=== PATIENT | male | born 1970 | race African-American/Black ===

== ENCOUNTER 2018-04-05 21:33 | Emergency (ER) | payer OTHER | END 2018-04-06 00:03 | disposition home or self-care (01) | LOC: ER 04-06 00:03 | DX: S16.1XXA Strain of muscle, fascia and tendon at neck level, initial encounter (principal); M54.5 Low back pain; I10 Essential (primary) hypertension; E11.9 Type 2 diabetes mellitus without complications; Z86.73 Personal history of transient ischemic attack (TIA), and cerebral infarction without residual deficits; V49.49XA Driver injured in collision with other motor vehicles in traffic accident, initial encounter; Y93.89 Activity, other specified; Y99.8 Other external cause status; Y92.488 Other paved roadways as the place of occurrence of the external cause | CPT/HCPCS: 72040; 72100; 99284 ==

== ENCOUNTER 2019-09-17 07:47 | Inpatient (IN) | payer OTHER ==
[~2019-09-17] VITALS: Ht 182.9 cm; Wt 86.4 kg
[~2019-09-17 07:47] MED LIST: CYCL10TA2 PO; NAPR-514 PO
[2019-09-17] MEDS ORDERED: fentaNYL PF VIAL 100 MCG/2 ML VIAL IVP ONE (08:15)
[2019-09-17] MEDS ORDERED: hydrALAZINE 20 MG/ML VIAL. IVP ONE (08:15)
[2019-09-17] MEDS ORDERED: IV NORMAL SALINE 1000ML BAG 1,000 ML IV ONE (08:15)
[2019-09-17 08:38] LABS: BILIRUBIN,URINE NEGATIVE (NEG); CLARITY,URINE CLEAR; COLOR,URINE YELLOW; NITRITE,URINE NEGATIVE (NEG); PROTEIN,URINE 100 mg/dL (NEG-TRACE)
[2019-09-17 08:44] LABS: BACTERIA,URINE 0 /HPF (0-FEW); SQUAMOUS EPITHELIAL CELL,UR FEW /LPF; WBC,URINE 0 /HPF (0-4)
--- NOTE | 2019-09-17 08:46 | PHYS DOC ---
Past Medical History Past Medical History: CVA, Diabetes-Type II, Hypertension, Seizure Past Surgical History: No Surgical History Alcohol Use: None Drug Use: None Adult General Chief Complaint Chief Complaint: HEADACHE HPI HPI Patient is a 49 year old male with past medical history of CVA, diabetes mellitus, and hypertension who presents with leg cramping and headaches that began last night. He he denies any syncopal episodes and says that he was sleeping when the cramping began. At this time he is complaining of a diffuse headache which is more intense than his normal headaches. He is also complaining of immobility due to the cramping in his legs which is most intense in the left calf. He denies any chest pain, shortness of breath, cough, congestion, or fever. Review of Systems Review of Systems Constitutional: Denies fever or chills Eyes: Denies redness or eye pain HENT: Denies nasal congestion or sore throat Respiratory: Denies cough or shortness of breath Cardiovascular: Denies chest pain or palpitations GI: Denies abdominal pain, nausea, or vomiting : Denies dysuria or hematuria Musculoskeletal: Reports bilateral leg pain and cramping. Integument: Denies rash or skin lesions Neurologic: Reports headache, denies focal weakness or sensory changes Complete systems were reviewed and found to be within normal limits, except as documented in this note. Current Medications Current Medications Current Medications Medications (Trade) Dose Ordered Sig/Faviola Start Time Stop Time Status Last Admin Dose Admin Fentanyl Citrate (Fentanyl 2ml Vial) 50 mcg 1X ONCE 09/17/19 08:15 09/17/19 08:16 DC 09/17/19 08:54 50 MCG Hydralazine HCl (Apresoline Inj) 20 mg 1X ONCE 09/17/19 08:15 09/17/19 08:16 DC 09/17/19 08:51 20 MG Labetalol HCl (Normodyne Iv Push) 20 mg 1X ONCE 09/17/19 09:45 09/17/19 09:46 DC 09/17/19 10:04 20 MG Sodium Chloride 1,000 ml @ 1,000 mls/hr 1X ONCE 09/17/19 08:15 09/17/19 09:14 DC 09/17/19 08:51 1,000 MLS/HR Allergies Allergies Allergies Coded Allergies Type Severity Reaction Last Updated Verified No Known Drug Allergies 10/24/13 No Physical Exam Physical Exam Constitutional: Tired, confused 49 yo male. HENT: Normocephalic, atraumatic, oropharynx moist Eyes: conjunctiva normal, no discharge Cardiovascular: Heart rate normal, regular rhythm Lungs & Thorax: Bilateral breath sounds clear to auscultation, no wheezing Abdomen: Soft, no tenderness Skin: Warm, dry, no erythema, no rash Back: No tenderness, no CVA tenderness Extremities: No tenderness, ROM intact, no edema Neurologic: Alert and oriented X 3, normal motor function, normal sensory function, no focal deficits noted Psychologic: Affect normal, judgement normal, mood normal Current Patient Data Vital Signs Vital Signs Date Time Temp Pulse Resp B/P (MAP) Pulse Ox O2 Delivery O2 Flow Rate FiO2 09/17/19 13:02 66 96 09/17/19 12:45 16 09/17/19 10:04 201/102 09/17/19 09:34 Room Air 09/17/19 07:47 98.1 98.1 Lab Values Laboratory Tests Test 09/17/19 08:22 09/17/19 08:50 Urine Collection Type Unknown Urine Color Yellow Urine Clarity Clear Urine pH 5.0 Urine Specific [place] 1.020 Urine Protein 100 mg/dL (NEG-TRACE) Urine Glucose (UA) Negative mg/dL (NEG) Urine Ketones (Stick) Negative mg/dL (NEG) Urine Blood Moderate (NEG) Urine Nitrite Negative (NEG) Urine Bilirubin Negative (NEG) Urine Urobilinogen Dipstick 1.0 mg/dL (0.2 mg/dL) Urine Leukocyte Esterase Negative (NEG) Urine RBC 6-10 /HPF (0-2) Urine WBC 0 /HPF (0-4) Urine Squamous Epithelial Cells Few /LPF Urine Bacteria 0 /HPF (0-FEW) Urine Opiates Screen Neg (NEG) Urine Methadone Screen Neg (NEG) Urine Barbiturates Neg (NEG) Urine Phencyclidine Screen Neg (NEG) Urine Amphetamine/Methamphetamine Neg (NEG) Urine Benzodiazepines Screen Neg (NEG) Urine Cocaine Screen Neg (NEG) Urine Cannabinoids Screen Pos (NEG) Urine Ethyl Alcohol Neg (NEG) White Blood Count 7.8 x10^3/uL (4.0-11.0) Red Blood Count 5.24 x10^6/uL (4.30-5.70) Hemoglobin 15.2 g/dL (13.0-17.5) Hematocrit 45.6 % (39.0-53.0) Mean Corpuscular Volume 87 fL (79-100) Mean Corpuscular Hemoglobin 29 pg (25-35) Mean Corpuscular Hemoglobin Concent 33 g/dL (31-37) Red Cell Distribution Width 14.2 % (11.5-14.5) Platelet Count 189 x10^3/uL (140-400) Neutrophils (%) (Auto) 78 % (31-73) H Lymphocytes (%) (Auto) 15 % (24-48) L Monocytes (%) (Auto) 5 % (0-9) Eosinophils (%) (Auto) 1 % (0-3) Basophils (%) (Auto) 1 % (0-3) Neutrophils # (Auto) 6.1 x10^3/uL (1.8-7.7) Lymphocytes # (Auto) 1.2 x10^3/uL (1.0-4.8) Monocytes # (Auto) 0.4 x10^3/uL (0.0-1.1) Eosinophils # (Auto) 0.1 x10^3/uL (0.0-0.7) Basophils # (Auto) 0.1 x10^3/uL (0.0-0.2) Prothrombin Time 12.6 SEC (11.7-14.0) Prothrombin Time INR 1.0 (0.8-1.1) Activated Partial Thromboplast Time 23 SEC (24-38) L Sodium Level 142 mmol/L (136-145) Potassium Level 3.8 mmol/L (3.5-5.1) Chloride Level 103 mmol/L (98-107) Carbon Dioxide Level 30 mmol/L (21-32) Anion Gap 9 (6-14) Blood Urea Nitrogen 15 mg/dL (8-26) Creatinine 1.6 mg/dL (0.7-1.3) H Estimated GFR (Cockcroft-Gault) 55.9 BUN/Creatinine Ratio 9 (6-20) Glucose Level 134 mg/dL (70-99) H Lactic Acid Level 1.3 mmol/L (0.4-2.0) Calcium Level 8.7 mg/dL (8.5-10.1) Magnesium Level 2.2 mg/dL (1.8-2.4) Total Bilirubin 0.5 mg/dL (0.2-1.0) Aspartate Amino Transferase (AST) 19 U/L (15-37) Alanine Aminotransferase (ALT) 17 U/L (16-63) Alkaline Phosphatase 79 U/L (46-116) Ammonia 14 mcmol/L (11-34) Creatine Kinase 364 U/L (39-308) H Creatine Kinase MB (Mass) 2.2 ng/mL (0.0-3.6) Creatine Kinase MB Relative Index 0.6 % (0-4) Troponin I Quantitative < 0.017 ng/mL (0.000-0.055) Total Protein 7.8 g/dL (6.4-8.2) Albumin 3.8 g/dL (3.4-5.0) Albumin/Globulin Ratio 1.0 (1.0-1.7) Ethyl Alcohol Level < 10 mg/dL (0-10) Laboratory Tests 09/17/19 08:50 Laboratory Tests 09/17/19 08:50 EKG EKG 09/17/2019 @08:20 showed NSR at 59bpm. ST depressions in Leads II, III, and aVF, as well as ST elevations in V1, V2 are consistent with old EKG. No other acute abnormalities noted. [] Radiology/Procedures Radiology/Procedures PROCEDURE: CT HEAD WO CONTRAST CT HEAD WO CONTRAST Indication: Headache, hypertension, no trauma Exposure: One or more of the following individualized dose reduction techniques were utilized for this examination: 1. Automated exposure control 2. Adjustment of the mA and/or kV according to patient size 3. Use of iterative reconstruction technique. Technique: Standard imaging without intravenous contrast. Comparison with images from 01/29/2015, and report from that study not available. FINDINGS: No evidence of acute intracranial hemorrhage, mass effect, midline shift or abnormal extra-axial fluid collection. Area of low-attenuation in the left occipital lobe compatible with area of chronic encephalomalacia is identified, similar to prior study. Ex vacuo dilatation of the adjacent ventricle is again identified. The visualized orbits appear unremarkable. No notable scalp swelling. Partially seen paranasal sinuses are clear. The visualized mastoids and auditory canals appear grossly clear. No acute skull abnormality. IMPRESSION: Chronic changes in the left occipital lobe. No evidence of acute intracranial hemorrhage. Could obtain MRI for further evaluation, as indicated. Electronically signed by: Dieter Benítez MD (09/17/2019 8:52 AM) [facility] Course & Med Decision Making Course & Med Decision Making Patient is a 49 yo male with PMH of CVA, DM, and HTN presents with a chief complaint of leg cramping headache that began last night. The patient denies any trauma or syncopal episodes. On exam he was confused and sleepy. He denied any chest pain or shortness of breath. BP was 230/100 in the ambulance and remained elevated in the ED. Hydralazine 20mg IV was given, which failed to lower his BP. Head CT was obtained and only showed old, chronic changes. Labs were unremarkable. Patient felt better after administration of blood pressure medications and elected to be discharged home. In the process of walking out of the ED the patient became diaphoretic and vomited. Patient was brought back to the ED and placed in a bed. Due to concern for a large swing in the patient's blood pressure, the patient requires admission for further evaluation and treatment. Discussed with Dr. Almeida who is in agreement with admission. Discussed findings and plan with patient and family, who acknowledge understanding and agreement. Dragon Disclaimer Dragon Disclaimer This electronic medical record was generated, in whole or in part, using a voice recognition dictation system. Departure Departure Impression: Primary Impression: Hypertensive urgency Additional Impression: Headache Disposition: 09 ADMITTED INPATIENT Admitting Physician: Asiya Almeida Condition: STABLE Referrals: ASIYA ALMEIDA MD (PCP) Problem Qualifiers Additional Impression: Headache Headache type: unspecified Headache chronicity pattern: acute headache Intractability: not intractable Qualified Codes: R51 - Headache DIETER POSADA DO Sep 17, 2019 08:45
--- NOTE | 2019-09-17 08:55 | RAD ---
CT HEAD WO CONTRAST Indication: Headache, hypertension, no trauma Exposure: One or more of the following individualized dose reduction techniques were utilized for this examination: 1. Automated exposure control 2. Adjustment of the mA and/or kV according to patient size 3. Use of iterative reconstruction technique. Technique: Standard imaging without intravenous contrast. Comparison with images from 01/29/2015, and report from that study not available. FINDINGS: No evidence of acute intracranial hemorrhage, mass effect, midline shift or abnormal extra-axial fluid collection. Area of low-attenuation in the left occipital lobe compatible with area of chronic encephalomalacia is identified, similar to prior study. Ex vacuo dilatation of the adjacent ventricle is again identified. The visualized orbits appear unremarkable. No notable scalp swelling. Partially seen paranasal sinuses are clear. The visualized mastoids and auditory canals appear grossly clear. No acute skull abnormality. IMPRESSION: Chronic changes in the left occipital lobe. No evidence of acute intracranial hemorrhage. Could obtain MRI for further evaluation, as indicated. Electronically signed by: Dieter Benítez MD (09/17/2019 8:52 AM) [facility]
[2019-09-17 09:08] LABS: BARBITURATES NEG (NEG); BENZODIAZEPINES NEG (NEG); CANNABINOIDS POS (NEG); COCAINE NEG (NEG); METHADONE NEG (NEG); OPIATES NEG (NEG); PHENCYCLIDINE NEG (NEG)
[2019-09-17 09:09] LABS: AMPHETAMINE/METHAMPHETAMINE NEG (NEG)
[2019-09-17 09:15] LABS: BASO # 0.1 x10^3/uL (0.0-0.2); BASO % 1 % (0-3); EOS # 0.1 x10^3/uL (0.0-0.7); EOS % 1 % (0-3); HEMATOCRIT 45.6 % (39.0-53.0); HEMOGLOBIN 15.2 g/dL (13.0-17.5); LYMPH # 1.2 x10^3/uL (1.0-4.8); LYMPH % 15 % (24-48); MEAN CORPUSCULAR HEMOGLOBIN 29 pg (25-35); MEAN CORPUSCULAR HGB CONC 33 g/dL (31-37); MEAN CORPUSCULAR VOLUME 87 fL (79-100); MONO # 0.4 x10^3/uL (0.0-1.1); MONO % 5 % (0-9); NEUT # 6.1 x10^3/uL (1.8-7.7); NEUT % 78 % (31-73); PLATELET COUNT 189 x10^3/uL (140-400); RED BLOOD COUNT 5.24 x10^6/uL (4.30-5.70); RED CELL DISTRIBUTION WIDTH 14.2 % (11.5-14.5); WHITE BLOOD COUNT 7.8 x10^3/uL (4.0-11.0)
[2019-09-17 09:22] LABS: CALCIUM 8.7 mg/dL (8.5-10.1); CREATININE 1.6 mg/dL (0.7-1.3); GFR 55.9; POTASSIUM 3.8 mmol/L (3.5-5.1)
[2019-09-17 09:27] LABS: ALBUMIN 3.8 g/dL (3.4-5.0); MAGNESIUM 2.2 mg/dL (1.8-2.4); TOTAL BILIRUBIN 0.5 mg/dL (0.2-1.0); TOTAL PROTEIN 7.8 g/dL (6.4-8.2)
[2019-09-17 09:30] LABS: PROTHROMBIN TIME PATIENT 12.6 SEC (11.7-14.0)
[2019-09-17] MEDS ORDERED: LABETALOL 20 MG/4 ML DISP.SYRIN. IVP ONE (09:45)
[2019-09-17] MEDS ORDERED: BUTA1TAB23 PO (11:36)
[2019-09-17] MEDS ORDERED: CLON0.1T PO (11:36)
--- NOTE | 2019-09-17 12:45 | PDOC1 ---
History and Physical Date of Admission Date of Admission DATE: 09/17/19 TIME: 12:45 Past Medical History Past Medical History Past Medical History Past Medical History Past Medical History: CVA, Diabetes-Type II, Hypertension, Seizure Past Surgical History: No Surgical History Alcohol Use: None Drug Use: None Current Problem List Problem List Problems Medical Problems: (1) Headache Status: Acute (2) Hypertensive urgency Status: Acute Current Medications Current Medications Current Medications Sodium Chloride 1,000 ml @ 1,000 mls/hr 1X ONCE IV Last administered on 09/17/19at 08:51; Start 09/17/19 at 08:15; Stop 09/17/19 at 09:14; Status DC Hydralazine HCl (Apresoline Inj) 20 mg 1X ONCE IVP Last administered on 09/17/19at 08:51; Start 09/17/19 at 08:15; Stop 09/17/19 at 08:16; Status DC Fentanyl Citrate (Fentanyl 2ml Vial) 50 mcg 1X ONCE IVP Last administered on 09/17/19at 08:54; Start 09/17/19 at 08:15; Stop 09/17/19 at 08:16; Status DC Labetalol HCl (Normodyne Iv Push) 20 mg 1X ONCE IVP Last administered on 09/17/19at 10:04; Start 09/17/19 at 09:45; Stop 09/17/19 at 09:46; Status DC Active Scripts Active Clonidine Hcl 0.1 Mg Tablet 0.1 Mg PO TID PRN PRN Take for systolic (upper) blood pressure greater than 180 and/or diastolic (lower) blood pressure greater than 100. [id number] 50-325-40 (Butalb/Acetaminophen/Caffeine) 1 Each Tablet 1 Each PO Q6HRS PRN Cyclobenzaprine Hcl 10 Mg Tablet 1 Tab PO TID Naproxen 500 Mg Tablet 1 Tab PO BID Allergies Allergies: Coded Allergies: No Known Drug Allergies (Unverified , 10/24/13) Vitals Vitals Vital Signs Date Time Temp Pulse Resp B/P (MAP) Pulse Ox O2 Delivery O2 Flow Rate FiO2 09/17/19 11:30 82 18 98 09/17/19 10:04 201/102 09/17/19 09:34 Room Air 09/17/19 07:47 98.1 98.1 Labs Labs Laboratory Tests Test 09/17/19 08:22 09/17/19 08:50 Urine Collection Type Unknown Urine Color Yellow Urine Clarity Clear Urine pH 5.0 Urine Specific [place] 1.020 Urine Protein 100 mg/dL (NEG-TRACE) Urine Glucose (UA) Negative mg/dL (NEG) Urine Ketones (Stick) Negative mg/dL (NEG) Urine Blood Moderate (NEG) Urine Nitrite Negative (NEG) Urine Bilirubin Negative (NEG) Urine Urobilinogen Dipstick 1.0 mg/dL (0.2 mg/dL) Urine Leukocyte Esterase Negative (NEG) Urine RBC 6-10 /HPF (0-2) Urine WBC 0 /HPF (0-4) Urine Squamous Epithelial Cells Few /LPF Urine Bacteria 0 /HPF (0-FEW) Urine Opiates Screen Neg (NEG) Urine Methadone Screen Neg (NEG) Urine Barbiturates Neg (NEG) Urine Phencyclidine Screen Neg (NEG) Urine Amphetamine/Methamphetamine Neg (NEG) Urine Benzodiazepines Screen Neg (NEG) Urine Cocaine Screen Neg (NEG) Urine Cannabinoids Screen Pos (NEG) Urine Ethyl Alcohol Neg (NEG) White Blood Count 7.8 x10^3/uL (4.0-11.0) Red Blood Count 5.24 x10^6/uL (4.30-5.70) Hemoglobin 15.2 g/dL (13.0-17.5) Hematocrit 45.6 % (39.0-53.0) Mean Corpuscular Volume 87 fL (79-100) Mean Corpuscular Hemoglobin 29 pg (25-35) Mean Corpuscular Hemoglobin Concent 33 g/dL (31-37) Red Cell Distribution Width 14.2 % (11.5-14.5) Platelet Count 189 x10^3/uL (140-400) Neutrophils (%) (Auto) 78 % (31-73) Lymphocytes (%) (Auto) 15 % (24-48) Monocytes (%) (Auto) 5 % (0-9) Eosinophils (%) (Auto) 1 % (0-3) Basophils (%) (Auto) 1 % (0-3) Neutrophils # (Auto) 6.1 x10^3/uL (1.8-7.7) Lymphocytes # (Auto) 1.2 x10^3/uL (1.0-4.8) Monocytes # (Auto) 0.4 x10^3/uL (0.0-1.1) Eosinophils # (Auto) 0.1 x10^3/uL (0.0-0.7) Basophils # (Auto) 0.1 x10^3/uL (0.0-0.2) Prothrombin Time 12.6 SEC (11.7-14.0) Prothromb Time International Ratio 1.0 (0.8-1.1) Activated Partial Thromboplast Time 23 SEC (24-38) Sodium Level 142 mmol/L (136-145) Potassium Level 3.8 mmol/L (3.5-5.1) Chloride Level 103 mmol/L (98-107) Carbon Dioxide Level 30 mmol/L (21-32) Anion Gap 9 (6-14) Blood Urea Nitrogen 15 mg/dL (8-26) Creatinine 1.6 mg/dL (0.7-1.3) Estimated GFR (Cockcroft-Gault) 55.9 BUN/Creatinine Ratio 9 (6-20) Glucose Level 134 mg/dL (70-99) Lactic Acid Level 1.3 mmol/L (0.4-2.0) Calcium Level 8.7 mg/dL (8.5-10.1) Magnesium Level 2.2 mg/dL (1.8-2.4) Total Bilirubin 0.5 mg/dL (0.2-1.0) Aspartate Amino Transf (AST/SGOT) 19 U/L (15-37) Alanine Aminotransferase (ALT/SGPT) 17 U/L (16-63) Alkaline Phosphatase 79 U/L (46-116) Ammonia 14 mcmol/L (11-34) Creatine Kinase 364 U/L (39-308) Creatine Kinase MB (Mass) 2.2 ng/mL (0.0-3.6) Creatine Kinase MB Relative Index 0.6 % (0-4) Troponin I Quantitative < 0.017 ng/mL (0.000-0.055) Total Protein 7.8 g/dL (6.4-8.2) Albumin 3.8 g/dL (3.4-5.0) Albumin/Globulin Ratio 1.0 (1.0-1.7) Ethyl Alcohol Level < 10 mg/dL (0-10) Laboratory Tests Test 09/17/19 08:09/17/19 08:50 Urine Collection Type Unknown Urine Color Yellow Urine Clarity Clear Urine pH 5.0 Urine Specific [place] 1.020 Urine Protein 100 mg/dL (NEG-TRACE) Urine Glucose (UA) Negative mg/dL (NEG) Urine Ketones (Stick) Negative mg/dL (NEG) Urine Blood Moderate (NEG) Urine Nitrite Negative (NEG) Urine Bilirubin Negative (NEG) Urine Urobilinogen Dipstick 1.0 mg/dL (0.2 mg/dL) Urine Leukocyte Esterase Negative (NEG) Urine RBC 6-10 /HPF (0-2) Urine WBC 0 /HPF (0-4) Urine Squamous Epithelial Cells Few /LPF Urine Bacteria 0 /HPF (0-FEW) Urine Opiates Screen Neg (NEG) Urine Methadone Screen Neg (NEG) Urine Barbiturates Neg (NEG) Urine Phencyclidine Screen Neg (NEG) Urine Amphetamine/Methamphetamine Neg (NEG) Urine Benzodiazepines Screen Neg (NEG) Urine Cocaine Screen Neg (NEG) Urine Cannabinoids Screen Pos (NEG) Urine Ethyl Alcohol Neg (NEG) White Blood Count 7.8 x10^3/uL (4.0-11.0) Red Blood Count 5.24 x10^6/uL (4.30-5.70) Hemoglobin 15.2 g/dL (13.0-17.5) Hematocrit 45.6 % (39.0-53.0) Mean Corpuscular Volume 87 fL (79-100) Mean Corpuscular Hemoglobin 29 pg (25-35) Mean Corpuscular Hemoglobin Concent 33 g/dL (31-37) Red Cell Distribution Width 14.2 % (11.5-14.5) Platelet Count 189 x10^3/uL (140-400) Neutrophils (%) (Auto) 78 % (31-73) Lymphocytes (%) (Auto) 15 % (24-48) Monocytes (%) (Auto) 5 % (0-9) Eosinophils (%) (Auto) 1 % (0-3) Basophils (%) (Auto) 1 % (0-3) Neutrophils # (Auto) 6.1 x10^3/uL (1.8-7.7) Lymphocytes # (Auto) 1.2 x10^3/uL (1.0-4.8) Monocytes # (Auto) 0.4 x10^3/uL (0.0-1.1) Eosinophils # (Auto) 0.1 x10^3/uL (0.0-0.7) Basophils # (Auto) 0.1 x10^3/uL (0.0-0.2) Prothrombin Time 12.6 SEC (11.7-14.0) Prothromb Time International Ratio 1.0 (0.8-1.1) Activated Partial Thromboplast Time 23 SEC (24-38) Sodium Level 142 mmol/L (136-145) Potassium Level 3.8 mmol/L (3.5-5.1) Chloride Level 103 mmol/L (98-107) Carbon Dioxide Level 30 mmol/L (21-32) Anion Gap 9 (6-14) Blood Urea Nitrogen 15 mg/dL (8-26) Creatinine 1.6 mg/dL (0.7-1.3) Estimated GFR (Cockcroft-Gault) 55.9 BUN/Creatinine Ratio 9 (6-20) Glucose Level 134 mg/dL (70-99) Lactic Acid Level 1.3 mmol/L (0.4-2.0) Calcium Level 8.7 mg/dL (8.5-10.1) Magnesium Level 2.2 mg/dL (1.8-2.4) Total Bilirubin 0.5 mg/dL (0.2-1.0) Aspartate Amino Transf (AST/SGOT) 19 U/L (15-37) Alanine Aminotransferase (ALT/SGPT) 17 U/L (16-63) Alkaline Phosphatase 79 U/L (46-116) Ammonia 14 mcmol/L (11-34) Creatine Kinase 364 U/L (39-308) Creatine Kinase MB (Mass) 2.2 ng/mL (0.0-3.6) Creatine Kinase MB Relative Index 0.6 % (0-4) Troponin I Quantitative < 0.017 ng/mL (0.000-0.055) Total Protein 7.8 g/dL (6.4-8.2) Albumin 3.8 g/dL (3.4-5.0) Albumin/Globulin Ratio 1.0 (1.0-1.7) Ethyl Alcohol Level < 10 mg/dL (0-10) VTE Prophylaxis Ordered VTE Prophylaxis Devices: Yes VTE Pharmacological Prophylaxi: Yes (NOT MY PT) MASOOD KAPLAN MD Sep 17, 2019 12:45
[2019-09-17] MEDS ORDERED: ONDANSETRON PF 4 MG/2 ML VIAL. IVP ONE (13:15)
[2019-09-17] MEDS ORDERED: DEXTROSE 50% 25 GM / 50ML DISP.SYRIN. IV PRN (13:45)
[2019-09-17] MEDS ORDERED: IV DEXTROSE 5% 250 ML BAG. IV PRN (13:45)
[2019-09-17 14:15] VITALS: BP 165/81
[2019-09-17] MEDS ORDERED: CITA20TA6 PO (14:53)
[2019-09-17] MEDS ORDERED: SIMV20TA18 PO (14:53)
[2019-09-17] MEDS ORDERED: LEVE-14 PO (14:53)
[2019-09-17] MEDS ORDERED: LOSA-73 PO (14:53)
[2019-09-17] MEDS ORDERED: ASPI325T8 PO (14:53)
[2019-09-17] MEDS ORDERED: LINA5TAB PO (14:53)
[2019-09-17] MEDS ORDERED: AMLO10TA8 PO (14:53)
[2019-09-17] MEDS: ASPIRIN 325 MG TABLET PO SCH (15:59)
[2019-09-17] MEDS: LINAGLIPTIN 5 MG TABLET PO SCH (15:59)
[2019-09-17] MEDS: LOSARTAN POTASSIUM 25 MG TABLET. PO SCH (16:00)
[2019-09-17] MEDS: CITALOPRAM 20 MG TABLET. PO SCH (16:00)
[2019-09-17] MEDS: amLODIPine BESYLATE 10 MG TABLET PO SCH (16:00)
[2019-09-17] MEDS: INSULIN LISPRO 300 UNITS/3 ML VIAL. SQ SCH (17:00)
[2019-09-17 19:28] VITALS: BP 143/73
[2019-09-17] MEDS: levETIRAcetam 500 MG TABLET PO SCH (20:22)
[2019-09-17] MEDS: SIMVASTATIN 20 MG TABLET PO SCH (20:22)
[2019-09-17 23:16] VITALS: BP 140/71
[2019-09-18 03:09] VITALS: BP 146/70
--- NOTE | 2019-09-18 06:07 | EKG ---
[address] [place] [address] Test Date: 2019-09-17 Test Time: 08:20:44 Pat Name: ENEDELIA MATTA Department: Room: Gender: M [employer]: : 1970 Requested By: FÉLIX POSADA Order Number: [id number] Reading MD: Measurements Intervals [place] Rate: 59 P: 48 LA: 152 QRS: -17 QRSD: 98 T: -41 QT: 422 QTc: 422 Interpretive Statements SINUS RHYTHM LEFTWARD AXIS CONSIDER LEFT VENTRICULAR HYPERTROPHY QRS(T) CONTOUR ABNORMALITY CONSIDER ANTEROSEPTAL MYOCARDIAL DAMAGE ST & T ABNORMALITY, CONSIDER INFERIOR ISCHEMIA OR LEFT VENTRICULAR STRAIN T ABNORMALITY IN ANTEROLATERAL LEADS ABNORMAL ECG No previous ECG available for comparison
[2019-09-18 07:00] VITALS: BP 155/82
[2019-09-18] MEDS: INSULIN LISPRO 300 UNITS/3 ML VIAL. SQ SCH ×3 (08:00→17:00)
--- NOTE | 2019-09-18 08:50 | PDOC ---
Provider Note Provider Note [id number] ASIYA ROSADO MD Sep 18, 2019 08:50
[2019-09-18] MEDS: hydroCHLOROthiazide 12.5 MG CAPSULE PO SCH (08:57)
[2019-09-18] MEDS: LINAGLIPTIN 5 MG TABLET PO SCH (08:57)
[2019-09-18] MEDS: LOSARTAN POTASSIUM 25 MG TABLET. PO SCH (08:57)
[2019-09-18] MEDS: amLODIPine BESYLATE 10 MG TABLET PO SCH (08:57)
[2019-09-18] MEDS: CITALOPRAM 20 MG TABLET. PO SCH (08:57)
[2019-09-18] MEDS: ASPIRIN 325 MG TABLET PO SCH (08:58)
[2019-09-18] MEDS: levETIRAcetam 500 MG TABLET PO SCH ×2 (08:58→21:19)
--- NOTE | 2019-09-18 09:01 | HP ---
ADMIT DATE: 09/17/2019 CHIEF COMPLAINT: Headache. HISTORY OF PRESENT ILLNESS: A 49-year-old black male with history of type 2 diabetes, CKD 3, who is followed in the office as well as hypertension. He may have been off some of his medicines recently, but does not know the name of the medications or when he last took them. He came in with fairly severe headache. CT scan was negative and headache lessened after getting IV labetalol and hydralazine. His blood pressure got too low in the waiting room and he had some vomiting and was readmitted. Blood pressure has been stable and he has been fine since that time. PAST MEDICAL HISTORY: CKD 3 with a creatinine baseline of 1.6. His A1c was 6.6 most recently. MEDICATIONS: Listed per the chart, but he does not know the names. ALLERGIES: No allergies are known. PAST SURGICAL HISTORY: No surgery. SOCIAL HISTORY: Unclear at this time. He is a nonsmoker, nondrinker. FAMILY HISTORY: Unremarkable. REVIEW OF SYSTEMS: No other complaints. OBJECTIVE: ENT: All within normal limits. NECK: No carotid bruits, nodes or masses. LUNGS: Clear. CARDIOVASCULAR: Regular rate. No murmur. ABDOMEN: Soft, benign and nontender. EXTREMITIES: Good pedal and radial pulses. No edema. No joint or skin lesions. NEUROLOGIC: Physiologic nonfocal. GENITOURINARY AND RECTAL: Deferred. ASSESSMENT: Hypertensive urgency, improved with the resumption of medications. He has chronic kidney disease 3, well controlled type 2 diabetes mellitus and may have a mild degree of diminished mental capacity per his conversations. PLAN: Continue same meds for now. He will bring his home meds and so we can confirm what he does have and if he is doing well in the next 24 hours, we will be able to be discharge and follow as an outpatient. ASIYA ROSADO MD DR: JESI/lee JOB#: [id number] / [id number]
[2019-09-18 11:00] VITALS: BP 154/79
--- NOTE | 2019-09-18 13:19 | NUR ---
SS following for discharge planning. SS reviewed pt chart. Pt is from home and is currently on room air. SS will continue to follow for discharge planning.
[2019-09-18 15:00] VITALS: BP 144/75
[2019-09-18 19:42] VITALS: BP 157/88
[2019-09-18] MEDS: SIMVASTATIN 20 MG TABLET PO SCH (21:19)
[2019-09-18 23:34] VITALS: BP 178/90
[2019-09-19 03:13] VITALS: BP 167/91
[2019-09-19 07:00] VITALS: BP 165/99
[2019-09-19] MEDS: INSULIN LISPRO 300 UNITS/3 ML VIAL. SQ SCH (08:00)
[2019-09-19] MEDS: levETIRAcetam 500 MG TABLET PO SCH (08:33)
[2019-09-19] MEDS: LINAGLIPTIN 5 MG TABLET PO SCH (08:33)
[2019-09-19] MEDS: CITALOPRAM 20 MG TABLET. PO SCH (08:33)
[2019-09-19] MEDS: ASPIRIN 325 MG TABLET PO SCH (08:33)
[2019-09-19 08:34] VITALS: BP 165/99
[2019-09-19] MEDS: amLODIPine BESYLATE 10 MG TABLET PO SCH (08:34)
[2019-09-19] MEDS: hydroCHLOROthiazide 12.5 MG CAPSULE PO SCH (08:34)
[2019-09-19] MEDS: LOSARTAN POTASSIUM 25 MG TABLET. PO SCH (08:34)
--- NOTE | 2019-09-19 08:45 | PDOC ---
Provider Note Provider Note [id number] ASIYA ROSADO MD Sep 19, 2019 08:45
--- NOTE | 2019-09-19 09:36 | DS ---
DATE OF DISCHARGE: 09/19/2019 HOSPITAL SUMMARY: A 49-year-old white male with history of hypertension and type 2 diabetes who came in with hypertensive urgency. He was treated in the ER with good results, but he had a headache and nausea and was admitted for further observation. Chemistry profile and CBC were unremarkable. His GFR is 56 compatible with his normal levels and his urine drug screen showed only THC. CT head CT showed no sign of intracranial bleed. He was treated with his usual home medications and blood pressure stabilized and his vital signs are adequate for outpatient care at this point. FINAL DIAGNOSES: 1. Hypertensive urgency. 2. Chronic kidney disease 3, stable. 3. Type 2 diabetes mellitus, well controlled. OPERATIONS, PROCEDURES, COMPLICATIONS, CONSULTATIONS: None. DISPOSITION: We will continue all home medications the same. Compliance is encouraged as this was the cause of his hypertensive urgency. Office followup in 1-2 weeks to maintain outpatient control. ASIYA ROSADO MD DR: JESI/lee JOB#: [id number] / [id number]
[2019-09-19] MEDS ORDERED: CHLO25TA10 PO (09:50)
--- NOTE | 2019-09-19 09:57 | NUR ---
Discharge Note: ENEDELIA MATTA Discharge instructions and discharge home medications reviewed with Patient and a copy given. All questions have been answered and understanding verbalized.
== END 2019-09-19 10:30 | disposition home or self-care (01) | DRG 305 ==
LOC: ER 07:47 → 2 SOUTH 13:10
PROVIDERS: ADMIT Family Medicine; ATTEND Family Medicine
DX: I16.0 Hypertensive urgency (principal); N18.3 Chronic kidney disease, stage 3 (moderate); E11.22 Type 2 diabetes mellitus with diabetic chronic kidney disease; I12.9 Hypertensive chronic kidney disease with stage 1 through stage 4 chronic kidney disease, or unspecified chronic kidney disease; Z86.73 Personal history of transient ischemic attack (TIA), and cerebral infarction without residual deficits
CPT/HCPCS: 36415; 70450; 80053; 80307; 81001; 82140; 82553; 82962; 83605; 83735; 84484; 85025; 85610; 85730; 93005; 96361; 96374; 96375; G0480; J0360; J2405; J3010; J3490; J7030; 99285-25; G0378

== ENCOUNTER → 2021-05-06 | Day surgery (SDC) | payer OTHER ==
[~2021-05-06] VITALS: Ht 180.3 cm; Wt 95.0 kg
[~2021-05-06] MED LIST changes: +AMLO-187 PO; +ASPI325T8 PO; +BUTA1TAB23 PO; +CHLO25TA10 PO; +CITA20TA6 PO; +CLON0.1T PO; +IV RINGERS,LACTATED 1000ML 1,000 ML IV SCH; +LEVE-14 PO; +LINA5TAB PO; +LOSA-73 PO; +PROPOFOL 10 MG/ML (20ML) VIAL. IV ONE; +SIMV20TA18 PO
[2021-05-06 09:15] VITALS: BP 124/71
[2021-05-06 10:28] VITALS: BP 152/78
--- NOTE | 2021-05-06 22:19 | CONS ---
DATE OF CONSULTATION: 05/06/2021 REFERRING PHYSICIAN: Vega Almeida MD REASON FOR CONSULTATION: Colorectal screening. HISTORY OF PRESENT ILLNESS: A 50-year-old -[place]ish male with past medical history significant for hypertension, hyperlipidemia, seen for a screening colon exam. Bowel habits are regular without diarrhea or constipation. There has been no melena or hematochezia. FAMILY HISTORY: Unrevealing for colon polyps or colon cancer. He is otherwise without additional complaints. PAST MEDICAL HISTORY: Hypertension, hyperlipidemia. ALLERGIES: None. MEDICATIONS: Include amlodipine, citalopram, , Tradjenta, losartan, and simvastatin. SOCIAL HISTORY: He is a smoker, nondrinker. FAMILY HISTORY: Noncontributory. REVIEW OF SYSTEMS: Per records. PAST SURGICAL HISTORY: Noncontributory. PHYSICAL EXAMINATION: GENERAL: Reveals a well-nourished, well-developed male who is alert, cooperative, in no acute distress. VITAL SIGNS: Temperature 97.4, pulse 60, respiratory rate 20. LUNGS: Clear. CARDIAC: Reveals S1, S2, without S3, S4 or appreciable murmur. ABDOMEN: Revealed a soft abdomen. Normoactive bowel sounds without appreciable hepatosplenomegaly. EXTREMITIES: No cyanosis, clubbing or edema. IMPRESSION: Colorectal screening. Risks and benefits of procedure including risk of hemorrhage and perforation during operation were discussed. The patient is willing to proceed at this time. Thank you, Dr. Almeida, for allowing us to consult and participate in this patient's care. SAMMI/POR/MATT DR: Juliet TID: [id number]
== END | disposition home or self-care (01) ==
LOC: ENDOS 08:37
PROVIDERS: ATTEND Internal Medicine Gastroenterology
DX: Z12.11 Encounter for screening for malignant neoplasm of colon (principal); K64.0 First degree hemorrhoids; I10 Essential (primary) hypertension; K63.89 Other specified diseases of intestine; E78.00 Pure hypercholesterolemia, unspecified; E11.9 Type 2 diabetes mellitus without complications; F41.9 Anxiety disorder, unspecified; Z87.891 Personal history of nicotine dependence; Z79.899 Other long term (current) drug therapy; Z98.890 Other specified postprocedural states; Z20.822 Contact with and (suspected) exposure to COVID-19
CPT/HCPCS: 45378; 82962; 87426; J2704